=== PATIENT | female | born 1985 | race Caucasian/White ===

== ENCOUNTER 2024-10-28 11:02 | Emergency (ER) | payer OTHER, SELFPAY ==
[2024-10-28 11:12] VITALS: BP 140/84; PULSE 74; RESP 18; TEMP 36.2; O2SAT 98; BMI 28.8
--- NOTE | 2024-10-28 11:46 | PC.NURSE ---
Lower back pain. States she had a twist and fall several months ago. States leaning forward improves her pain. Pt is able to ambulate w/o issue Pt denies issues with urination or defecation. Denies fevers. Denies N/V.
[2024-10-28 11:56] LABS: Ictotest Urine Negative (Negative)
[2024-10-28 12:00] LABS: RBC Urine 0-1/HPF (0-5/HPF); Urine Volume 10mL (spun); WBC Urine 1-5/HPF (0-5/HPF)
--- NOTE | 2024-10-28 12:00 | ED.BACK ---
HPI - Back Pain/Injury <Fadia Ramirez PA-C - Last Filed: 10/28/24 13:27> General Chief Complaint: Back Pain/Injury Stated Complaint: back pain Time Seen by Provider: 10/28/24 11:22 Source: patient History of Present Illness HPI Narrative: Krissy Oro is a pleasant 39-year-old female with a past medical history of connective tissue disorder, prior arrhythmia resolved after ablation who presents to the emergency department for low back pain and left hip pain after a fall 2 months ago. Patient states she tripped over a stump 2 months ago and partially fell catching herself with the left arm resulting in left shoulder pain and low back pain. She has already been evaluated by Orthopedics for the left shoulder pain and had an MRI of the left shoulder revealing a labrum tear. States that since this injury she has continued to have some midline lumbar pain and occasionally some left hip pain. She thought that this was just a muscle strain it would go away on its own however it has persisted so she is interested in getting an MRI of her lumbar spine today. She is ambulatory and denies any radiation of pain into the abdomen or down the legs. No numbness tingling or weakness of the lower legs. No history of fevers, chills, IV drug use, cancer. No dysuria or abnormal vaginal discharge. No abdominal pain. She took 500 mg of Tylenol before for this pain but it did not resolve the pain she does not like taking pills otherwise. She is here today with her 2 daughters. Related Data Previous Rx's Medication Instructions Recorded lidocaine 5 % topical patch 1 patch topical DAILY #15 ea 10/28/24 (Lidoderm) methocarbamol 500 mg tablet 500 mg PO TID PRN muscle spasm #20 10/28/24 tabs naproxen 500 mg tablet 500 mg PO BID PRN pain #20 tabs 10/28/24 Allergies Allergy/AdvReac Type Severity Reaction Status Date / Time No Known Drug Allergies Allergy Verified 10/28/24 11:12 Review of Systems <Fadia Ramirez PA-C - Last Filed: 10/28/24 13:27> Review of Systems ROS Unobtainable: All systems reviewed & are unremarkable except as noted in HPI and below Patient History <Fadia Ramirez PA-C - Last Filed: 10/28/24 13:27> Social History Smoking Status: Never smoker Smoking Status: Never smoker Exam <Fadia Ramirez PA-C - Last Filed: 10/28/24 13:27> Narrative Exam Narrative: GENERAL: 39 year old patient appears stated age. Well-developed patient, in no acute distress. HEAD: Atraumatic. Normocephalic. NECK: Trachea midline. Cervical ROM intact. CARDIOVASCULAR: Regular rate and rhythm. RESPIRATORY: ?Nonlabored respirations. ?Speaking in clear, full sentences. ?Clear to auscultation. Breath sounds equal bilaterally. No wheezes, rales, or rhonchi. ? GASTROINTESTINAL: Abdomen soft, non-tender, nondistended. EXTREMITIES: No edema or joint tenderness. BACK: Subjective pain and some tenderness with deep palpation of the midline lumbar region, no palpable defects or step-offs. No rashes in this area. No CVA tenderness. Subjective pain left hip but no pain with range of motion of hip. Strong PT pulses bilaterally. NEURO: AOx3. ?Clear speech. ?Moves all 4 extremities appropriately. SKIN: No rash or erythema of visible areas Initial Vital Signs Initial Vital Signs: Vital Signs Temperature 97.2 F L 10/28/24 11:12 Pulse Rate 74 10/28/24 11:12 Respiratory Rate 18 10/28/24 11:12 Blood Pressure 140/84 10/28/24 11:12 Pulse Oximetry 98 10/28/24 11:12 Oxygen Delivery Method Room Air 10/28/24 11:12 <Rashida Kenney DO - Last Filed: 10/28/24 17:54> Initial Vital Signs Initial Vital Signs: Vital Signs Temperature 97.2 F L 10/28/24 11:12 Pulse Rate 74 10/28/24 11:12 Respiratory Rate 18 10/28/24 11:12 Blood Pressure 140/84 10/28/24 11:12 Pulse Oximetry 98 10/28/24 11:12 Oxygen Delivery Method Room Air 10/28/24 11:12 Course <Fadia Ramirez PA-C - Last Filed: 10/28/24 13:27> Orders Ordered: ED Orders 10/28/24 11:40 Ictotest Urine Stat Urine Microscopic Stat 10/28/24 12:12 XR hip w pel if done LT 2V Stat XR lumbar spine 2-3V Stat Discontinued Medications Ketorolac Tromethamine (Ketorolac 30 Mg/Ml Vial) 30 mg IM NOW ONE Stop: 10/28/24 12:13 Last Admin: 10/28/24 12:33 Dose: 30 mg Documented By: MAMTA Lidocaine (Lidocaine 5% Patch) 1 each TOP NOW ONE Stop: 10/28/24 12:13 Last Admin: 10/28/24 12:33 Dose: 1 each Documented By: MAMTA Ondansetron HCl (Ondansetron 4 Mg/2 Ml Inj) 4 mg IV NOW PRN PRN Reason: Nausea And Vomiting Ondansetron HCl (Ondansetron 4 Mg Odt) 4 mg SL NOW PRN PRN Reason: Nausea And Vomiting Vital Signs Vital signs: Vital Signs - 8 hr 10/28/24 11:12 10/28/24 13:50 Temperature 97.2 F L Pulse Rate 74 86 Respiratory Rate 18 16 Blood Pressure 140/84 128/81 Pulse Oximetry 98 97 Oxygen Delivery Method Room Air Room Air <Rashida Kenney, - Last Filed: 10/28/24 17:54> Orders Ordered: ED Orders 10/28/24 11:40 Ictotest Urine Stat Urine Microscopic Stat 10/28/24 12:12 XR hip w pel if done LT 2V Stat XR lumbar spine 2-3V Stat Discontinued Medications Ketorolac Tromethamine (Ketorolac 30 Mg/Ml Vial) 30 mg IM NOW ONE Stop: 10/28/24 12:13 Last Admin: 10/28/24 12:33 Dose: 30 mg Documented By: MAMTA Lidocaine (Lidocaine 5% Patch) 1 each TOP NOW ONE Stop: 10/28/24 12:13 Last Admin: 10/28/24 12:33 Dose: 1 each Documented By: MAMTA Ondansetron HCl (Ondansetron 4 Mg/2 Ml Inj) 4 mg IV NOW PRN PRN Reason: Nausea And Vomiting Ondansetron HCl (Ondansetron 4 Mg Odt) 4 mg SL NOW PRN PRN Reason: Nausea And Vomiting Vital Signs Vital signs: Vital Signs - 8 hr 10/28/24 11:12 10/28/24 13:50 Temperature 97.2 F L Pulse Rate 74 86 Respiratory Rate 18 16 Blood Pressure 140/84 128/81 Pulse Oximetry 98 97 Oxygen Delivery Method Room Air Room Air MDM - Back Pain/Injury <Fadia C James, PA-C - Last Filed: 10/28/24 13:27> Lab Data Labs: Lab Results 10/28/24 Range/Units 11:40 Ur Bilirubin Confirm Negative (Negative) Urine RBC 0-1/hpf (0-5/HPF) Urine WBC 1-5/hpf (0-5/HPF) Ur Squamous Epith Cells 0-1 /hpf (0-5/HPF) Urine Bacteria Occasional (0-1) (None) Ur Culture Indicated? Cult not indicated Vol Urine Centrifuged 10ml (spun) Point of Care Testing Test Results Negative Urine Dip Bedside Urine Glucose Negative Bedside Urine Bilirubin + 1 Bedside Urine Ketone + 15 Urine Specific [place] 1.025 Bedside Urine Occult Blood - Negative Bedside Urine pH 6.0 Bedside Urine Protein - Negative Bedside Urine Urobilinogen - Negative Bedside Urine Nitrite - Negative Bedside Urine Leukocytes - Negative Esterase Imaging Data Lumbar X-Ray: Radiologist's Impression: PROCEDURE: XR LUMBAR SPINE 2-3V INDICATIONS: midline low back pain and L hip pain after fall 2 moago TECHNIQUE: 3 views of the lumbar spine were acquired. COMPARISON: None. FINDINGS: Bones: 5 [id number] vertebrae are present. There is normal bony alignment. No vertebral body compression fractures. No suspicious bony lesions. Soft tissues: Overlying bowel gas pattern is normal. No suspicious soft tissue calcifications. IMPRESSION: No acute bony abnormality. Left Hip and Pelvis X-ray: Radiologist's Impression: PROCEDURE: XR HIP W PEL IF DONE LT 2V INDICATIONS: midline low back pain and L hip pain after fall 2 moago TECHNIQUE: AP pelvis with lateral view(s) of the left hip(s). COMPARISON: None. FINDINGS: Bones: No fractures or dislocations. Pelvic ring appears intact. No suspicious bony lesions. Soft tissues: The visualized bowel gas pattern is normal. No suspicious soft tissue calcifications. IMPRESSION: No acute bony abnormality. [facility] Narrative Medical decision making narrative: 39-year-old female with a past medical history of connective tissue disorder, prior arrhythmia resolved after ablation who presents to the emergency department for low back pain and left hip pain after a fall 2 months ago. Differential diagnosis includes but is not limited to lumbar strain, compression fracture, degenerative disc disease, spinal stenosis, muscle spasm, UTI, etc. On exam patient is in no acute distress, nontoxic appearing, vital signs appropriate. Her lower extremities are neurovascularly intact, no bowel or bladder incontinence, no fevers, no history of IV drug use, no direct trauma to the back. She is subjective midline lumbar spinal discomfort and some tenderness with the palpation, also some subjective left hip pain ever since a partial fall 2 months ago. We will obtain x-ray lumbar spine and hip to rule out bony abnormalities, treat with Toradol and Lidoderm, UA reveals negative test and no infection. Lumbar and hip x-ray negative for acute bony abnormalities. Suspect symptoms related to lumbar strain however stressed the importance of follow up with spine ortho for further imaging and evaluation. Recommended prescriptions of naproxen, Robaxin, Lidoderm in addition to acetaminophen, rest, gentle stretching, TENs unit. Patient verbalized understanding of all information is agreeable to the plan. ED return precautions discussed. PCP follow up advised. She is ambulatory and stable for discharge home. <Rashida Kenney, - Last Filed: 10/28/24 17:54> Lab Data Labs: Lab Results 10/28/24 Range/Units 11:40 Ur Bilirubin Confirm Negative (Negative) Urine RBC 0-1/hpf (0-5/HPF) Urine WBC 1-5/hpf (0-5/HPF) Ur Squamous Epith Cells 0-1 /hpf (0-5/HPF) Urine Bacteria Occasional (0-1) (None) Ur Culture Indicated? Cult not indicated Vol Urine Centrifuged 10ml (spun) Point of Care Testing Test Results Negative Urine Dip Bedside Urine Glucose Negative Bedside Urine Bilirubin + 1 Bedside Urine Ketone + 15 Urine Specific [place] 1.025 Bedside Urine Occult Blood - Negative Bedside Urine pH 6.0 Bedside Urine Protein - Negative Bedside Urine Urobilinogen - Negative Bedside Urine Nitrite - Negative Bedside Urine Leukocytes - Negative Esterase Discharge Plan Departure Patient Disposition: Home Clinical Impression: Lumbar strain Qualifiers: Encounter type: initial encounter Qualified Code(s): S39.012A - Strain of muscle, fascia and tendon of lower back, initial encounter Instructions: DI for Low Back Pain Activity Restrictions/Additional Instructions: Dear Ms. Oro, Thank you for coming to the emergency department. Today we performed x-rays of your lumbar spine and pelvis/left hip which showed no acute bony abnormalities. X-rays do not rule out important soft tissue injuries however so it is very important to continue following up with your primary care doctor and an orthopedic spine doctor for further evaluation. I have prescribed you naproxen which is anti-inflammatory pain medication, Robaxin which is a muscle relaxer, and Lidoderm which is topical numbing medication. Please be aware that methocarbamol/Robaxin as a muscle relaxer and this medication may make you drowsy so he should not drink alcohol, operate heavy machinery, or drive a car while taking this medication. You may also safely take acetaminophen/Tylenol with these medications. You should rest, perform gentle stretching, and use heat therapy or TENs unit as well. The closest orthopedic spine surgeon is Dr. Lonnie Callahan with [facility] in [place]. You may call to schedule an appointment at [phone]. Please follow up with your primary care doctor within the next 2-3 days for ER follow-up. (If you do not have a PCP you can call [phone]. ?to schedule an appointment with an [facility] Primary Care Provider) IF YOU DEVELOP ANY NEW OR WORSENING SYMPTOMS, RETURN TO THE ER! Please read the attached instructions, they highlight more specific treatments and interventions for you at home. Thank you for letting me participate in your care, Fadia Ramirez PA-C Prescriptions: New naproxen 500 mg tablet 500 mg PO BID PRN (Reason: pain) Qty: 20 0RF methocarbamol 500 mg tablet 500 mg PO TID PRN (Reason: muscle spasm) Qty: 20 0RF lidocaine [Lidoderm] 5 % adhesive patch,medicated 1 patch topical DAILY Qty: 15 0RF Rx Instructions: leave on most painful area for up to 12 hrs Stand Alone Forms: Patient Portal/API/Survey ED Sign-out <Rashida Kenney, - Last Filed: 10/28/24 17:54> Cosign ED Attending Lorraine Attestation: I was immediately available in the department for consultation.
[2024-10-28 12:01] LABS: Bacteria Urine Occasional (0-1); Culture Indicated Urine Cult Not Indicated; Squamous Epithelial Cell Urine 0-1 /HPF (0-5/HPF)
--- NOTE | 2024-10-28 12:12 | DI.RAD.S_ITS ---
PROCEDURE: XR HIP W PEL IF DONE LT 2V INDICATIONS: midline low back pain and L hip pain after fall 2 moago TECHNIQUE: AP pelvis with lateral view(s) of the left hip(s). COMPARISON: None. FINDINGS: Bones: No fractures or dislocations. Pelvic ring appears intact. No suspicious bony lesions. Soft tissues: The visualized bowel gas pattern is normal. No suspicious soft tissue calcifications. IMPRESSION: No acute bony abnormality. Dictated by: Magnolia Cartagena M.D. on 10/28/2024 at 11:42 Approved by: Magnolia Cartagena M.D. on 10/28/2024 at 11:43
--- NOTE | 2024-10-28 12:12 | DI.RAD.S_ITS ---
PROCEDURE: XR LUMBAR SPINE 2-3V INDICATIONS: midline low back pain and L hip pain after fall 2 moago TECHNIQUE: 3 views of the lumbar spine were acquired. COMPARISON: None. FINDINGS: Bones: 5 [id number] vertebrae are present. There is normal bony alignment. No vertebral body compression fractures. No suspicious bony lesions. Soft tissues: Overlying bowel gas pattern is normal. No suspicious soft tissue calcifications. IMPRESSION: No acute bony abnormality. Dictated by: Magnolia Cartagena M.D. on 10/28/2024 at 11:43 Approved by: Magnolia Cartagena M.D. on 10/28/2024 at 11:44
[2024-10-28] MEDS: LIDOCAINE 5% PATCH 1 EACH TOP (12:33)
[2024-10-28] MEDS: KETOROLAC 30 MG/ML VIAL IM (12:33)
[2024-10-28 13:50] VITALS: BP 128/81; PULSE 86; RESP 16; O2SAT 97
== END 2024-10-28 13:51 | disposition home or self-care (01) ==
PROVIDERS: Emergency Provider Physician Assistant
DX: S39.012A Strain of muscle, fascia and tendon of lower back, initial encounter (principal); W18.09XA Striking against other object with subsequent fall, initial encounter
CPT/HCPCS: 72100; 73502; 81003; 81015; 81025; 96372; 99283; 99284; J1885

== ENCOUNTER 2024-11-18 10:17 | Emergency (ER) | payer OTHER, SELFPAY ==
[2024-11-18 10:44] VITALS: BP 132/79; PULSE 113; RESP 14; TEMP 37.2; O2SAT 99; BMI 28.8
--- NOTE | 2024-11-18 10:48 | DI.RAD.S_ITS ---
PROCEDURE: XR CHEST 1V INDICATIONS: chest pain TECHNIQUE: One view of the chest was acquired. COMPARISON: None. FINDINGS: Surgical changes and devices: None. Lungs and pleura: An incomplete inspiratory result is noted, causing a crowded appearance to the lung markings. No focal infiltrates are seen. No pneumothorax or significant pleural effusions are seen. Mediastinum: Mediastinal contours appear normal. Heart size is normal. Bones and chest wall: No suspicious bony lesions. Overlying soft tissues appear unremarkable. IMPRESSION: Low lung volumes, without an acute abnormality seen by plain film. Dictated by: Angel Vizcaino M.D. on 11/18/2024 at 10:10 Approved by: Angel Vizcaino M.D. on 11/18/2024 at 10:10
[2024-11-18] MEDS: ASPIRIN 81 MG CHEW TAB 324 MG PO (10:51)
--- NOTE | 2024-11-18 10:52 | EKG_ITS ---
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
[2024-11-18] MEDS: ONDANSETRON 4 MG ODT SL (10:56)
--- NOTE | 2024-11-18 11:06 | ED.FEMALEGU ---
HPI - Female Genitourinary <Becki Duncan PA-C - Last Filed: 11/18/24 17:11> General Chief complaint: Urogenital-Female Stated complaint: Chest and Kidney pain Time Seen by Provider: 11/18/24 11:05 Mode of arrival: Ambulatory History of Present Illness HPI Narrative: 39-year-old woman with a history of previous cardiac ablation presents with concern for chest pain and kidney pain with some nausea in the setting of UTI. Patient states she was at urgent care yesterday after she had burning with urination day before yesterday and yesterday. She was diagnosed with a UTI but she has not yet picked up her antibiotics. She was having kidney pain/flank pain on both sides last night before bed and throughout the night, also had a fever up to 101 last night. She says she slept poorly but then woke up at around 3 or 4:00 a.m. from her sleep due to chest pain. She said that the pain was pretty intense and they considered calling 911, but it resolved within about 10 minutes. She describes it as a sharp pain towards her left shoulder in her upper chest accompanied with a heaviness sensation in her chest that made it feel like it was hard to breathe normally. She is not currently having any chest pain and it did not return. She notes that her sister of a heart attack at age 42 and . Patient states that her ablation was performed a few years ago because she had frequent bouts of SVT and need for adenosine. She has not had this happen since her ablation, though she does state that she frequently gets mildly tachycardic with a heart rate above 100. She denies any recent cough or URI symptoms. Until 2 days ago she was in her usual state of health. Related Data Previous Rx's Medication Instructions Recorded lidocaine 5 % topical patch 1 patch topical DAILY #15 ea 10/28/24 (Lidoderm) methocarbamol 500 mg tablet 500 mg PO TID PRN muscle spasm #20 10/28/24 tabs naproxen 500 mg tablet 500 mg PO BID PRN pain #20 tabs 10/28/24 amoxicillin 875 mg-potassium 1 tab PO Q12H pyelolonephritis 7 11/18/24 clavulanate 125 mg tablet days #14 tabs hydrocodone 5 mg-acetaminophen 325 1 tab PO Q8H PRN pain 2 days #6 11/18/24 mg tablet tabs Allergies Allergy/AdvReac Type Severity Reaction Status Date / Time No Known Drug Allergies Allergy Verified 11/18/24 10:44 Review of Systems <Becki Duncan PA-C - Last Filed: 11/18/24 17:11> Review of Systems Narrative: See HPI Exam <Becki Duncan PA-C - Last Filed: 11/18/24 17:11> Narrative Exam Narrative: GENERAL: [39] year old patient appears stated age. Well-developed patient, in mild distress. Tired appearing. Nontoxic HEAD: Atraumatic. Normocephalic. EYES: Pupils equal round and reactive. Extraocular motions intact. No scleral icterus. No injection or drainage. ENT: Nose without bleeding, purulent drainage. Airway patent. NECK: Trachea midline. CARDIOVASCULAR: Mildly tachycardic Regular rate and rhythm without murmurs, gallops, or rubs. RESPIRATORY: Clear to auscultation. Breath sounds equal bilaterally. No wheezes, rales, or rhonchi. GASTROINTESTINAL: Abdomen soft, non-tender, nondistended, suprapubic tenderness, bilateral flank pain with palpation and worse with percussion. EXTREMITIES: No edema or joint tenderness. BACK: Nontender without deformity or crepitance. No flank tenderness. NEURO: AOx3. SKIN: No rash or erythema of visible areas Initial Vital Signs Initial Vital Signs: Vital Signs Temperature 99.0 F 11/18/24 10:44 Pulse Rate 113 H 11/18/24 10:44 Respiratory Rate 14 11/18/24 10:44 Blood Pressure 132/79 11/18/24 10:44 Pulse Oximetry 99 11/18/24 10:44 Oxygen Delivery Method Room Air 11/18/24 10:44 <Rashida Kenney DO - Last Filed: 11/19/24 09:28> Initial Vital Signs Initial Vital Signs: Vital Signs Temperature 99.0 F 11/18/24 10:44 Pulse Rate 113 H 11/18/24 10:44 Respiratory Rate 14 11/18/24 10:44 Blood Pressure 132/79 11/18/24 10:44 Pulse Oximetry 99 11/18/24 10:44 Oxygen Delivery Method Room Air 11/18/24 10:44 Scores <Becki Duncan PA-C - Last Filed: 11/18/24 17:11> HEART Score Heart Score history: Slightly Suspicious Heart Score EKG: Normal Heart Score Age: < 45 years old Heart Score risk factors: 1-2 risk factors Heart Score troponin: < or = to normal limit Heart Score Total: 1 <Rashida Kenney DO - Last Filed: 11/19/24 09:28> HEART Score Heart Score Total: 1 Course <Becki Duncan PA-C - Last Filed: 11/18/24 17:11> Orders Ordered: Discontinued Medications Aspirin (Aspirin 81 Mg Chew Tab) 324 mg PO NOW ONE Stop: 11/18/24 10:49 Last Admin: 11/18/24 10:51 Dose: 324 mg Documented By: TOMASA Sodium Chloride (Normal Saline 0.9%) 1,000 mls @ 1,000 mls/hr IV BOLUS ONE Stop: 11/18/24 12:07 Last Infusion: 11/18/24 12:47 Dose: Infused Documented By: Admin: 11/18/24 11:52 Dose: 1,000 mls/hr Documented By: DINO Ceftriaxone Sodium 1,000 mg/ (Sodium Chloride) 100 mls @ 200 mls/hr IV NOW ONE Stop: 11/18/24 11:50 Last Infusion: 11/18/24 12:47 Dose: Infused Documented By: Admin: 11/18/24 12:04 Dose: 200 mls/hr Documented By: DINO Ketorolac Tromethamine (Ketorolac 30 Mg/Ml Vial) 15 mg IV NOW ONE Stop: 11/18/24 11:50 Last Admin: 11/18/24 12:04 Dose: 15 mg Documented By: DINO Ondansetron HCl (Ondansetron 4 Mg/2 Ml Inj) 4 mg IV NOW PRN PRN Reason: Nausea And Vomiting Ondansetron HCl (Ondansetron 4 Mg Odt) 4 mg SL NOW PRN PRN Reason: Nausea And Vomiting Last Admin: 11/18/24 10:56 Dose: 4 mg Documented By: TOMASA Vital Signs Vital signs: Vital Signs - 8 hr 11/18/24 10:44 11/18/24 13:11 Temperature 99.0 F 98.2 F Pulse Rate 113 H 89 Respiratory Rate 14 17 Blood Pressure 132/79 118/82 Pulse Oximetry 99 97 Oxygen Delivery Method Room Air Room Air <Rashida Kenney DO - Last Filed: 11/19/24 09:28> Orders Ordered: Discontinued Medications Aspirin (Aspirin 81 Mg Chew Tab) 324 mg PO NOW ONE Stop: 11/18/24 10:49 Last Admin: 11/18/24 10:51 Dose: 324 mg Documented By: TOMASA Sodium Chloride (Normal Saline 0.9%) 1,000 mls @ 1,000 mls/hr IV BOLUS ONE Stop: 11/18/24 12:07 Last Infusion: 11/18/24 12:47 Dose: Infused Documented By: Admin: 11/18/24 11:52 Dose: 1,000 mls/hr Documented By: DINO Ceftriaxone Sodium 1,000 mg/ (Sodium Chloride) 100 mls @ 200 mls/hr IV NOW ONE Stop: 11/18/24 11:50 Last Infusion: 11/18/24 12:47 Dose: Infused Documented By: Admin: 11/18/24 12:04 Dose: 200 mls/hr Documented By: DINO Ketorolac Tromethamine (Ketorolac 30 Mg/Ml Vial) 15 mg IV NOW ONE Stop: 11/18/24 11:50 Last Admin: 11/18/24 12:04 Dose: 15 mg Documented By: DINO Ondansetron HCl (Ondansetron 4 Mg/2 Ml Inj) 4 mg IV NOW PRN PRN Reason: Nausea And Vomiting Ondansetron HCl (Ondansetron 4 Mg Odt) 4 mg SL NOW PRN PRN Reason: Nausea And Vomiting Last Admin: 11/18/24 10:56 Dose: 4 mg Documented By: TOMASA Vital Signs Vital signs: Vital Signs - 8 hr 11/18/24 10:44 11/18/24 13:11 Temperature 99.0 F 98.2 F Pulse Rate 113 H 89 Respiratory Rate 14 17 Blood Pressure 132/79 118/82 Pulse Oximetry 99 97 Oxygen Delivery Method Room Air Room Air MDM - Female Genitourinary <Becki Duncan PA-C - Last Filed: 11/18/24 17:11> Differential Diagnosis Differential diagnosis: Likely urinary tract infection and other (pyelonephritis, atypical chest pain) Medical Records Attestation: I reviewed the patient's medical records. Lab Data Attestation: I reviewed the patient's lab results. 11/18/24 11:20 11/18/24 11:20 Labs: Lab Results 11/18/24 11/18/24 Range/Units 10:51 11:20 WBC 7.1 (4.5-11.0) X10^3/uL RBC 4.75 (4.0-5.2) X10^6/uL Hgb 15.7 (12.0-16.0) g/dL Hct 45.9 (36-46) % MCV 96.8 (80-100) fL MCH 33.2 (26-34) PG MCHC 34.3 (30-36) % RDW 13.8 (11.6-14.8) % Plt Count 182 (150-400) X10^3/uL Neut % (Auto) 72.6 (50-75) % Lymph % (Auto) 14.7 L (25-40) % Graham % (Auto) 12.1 (3-14) % Eos % (Auto) 0.2 L (2-4) % Baso % (Auto) 0.4 (0-2) % Neut # (Auto) 5100 (1117-8582) /uL Lymph # (Auto) 1000 L (5165-9247) /uL Graham # (Auto) 900 (0-900) /uL Eos # (Auto) 0 (0-450) /uL Baso # (Auto) 0 (0-100) /uL PT 11.0 (9.4-12.5) SECONDS INR 1.0 (0.9-1.3) APTT 32 (25.1-36.5) SECONDS Sodium 135 L (137-145) mmol/L Potassium 3.6 (3.4-5.1) mmol/L Chloride 101 (98-107) mmol/L Carbon Dioxide 20 L (22-32) mmol/L BUN 7 (7-17) mg/dL Creatinine 0.70 (0.52-1.04) mg/dL Estimated GFR > 60 (>60) mL/min BUN/Creatinine Ratio 10.0 (6-22) Glucose 104 H (70-100) mg/dL Calcium 9.2 (8.4-10.2) mg/dL Magnesium 1.7 (1.6-2.3) mg/dL Total Bilirubin 0.7 (0.2-1.3) mg/dL AST 24 (14-36) IU/L ALT 17 (<35) IU/L Alkaline Phosphatase 69 (38-126) U/L Total Creatine Kinase 40 (30-135) U/L Troponin I < 0.012 (0.01-0.034) ng/mL NT-Pro-B Natriuret Pep 52 (<125) pg/mL Total Protein 8.3 H (6.3-8.2) g/dL Albumin 4.6 (3.5-5.0) g/dL Globulin 3.7 (1.7-4.1) g/dL Albumin/Globulin Ratio 1.2 (1.0-2.8) Lipase 55 (23-300) U/L Urine RBC 1-5/hpf (0-5/HPF) Urine WBC 10-30/hpf H (0-5/HPF) Ur Squamous Epith Cells 0-1 /hpf (0-5/HPF) Urine Bacteria Many (>30) H (None) Urine Mucus 1+ H (Negative) Ur Culture Indicated? Specimen cultured Vol Urine Centrifuged 10ml (spun) Point of Care Testing Test Results Negative Urine Dip Bedside Urine Glucose Negative Bedside Urine Bilirubin - Negative Bedside Urine Ketone - Negative Urine Specific [place] 1.010 Bedside Urine Occult Blood +++ Bedside Urine pH 6.0 Bedside Urine Protein - Negative Bedside Urine Urobilinogen - Negative Bedside Urine Nitrite - Negative Bedside Urine Leukocytes +++ 500 Esterase Imaging Data Chest x-ray: My Impression: Agree with Radiology interpretation Radiologist's Impression: [address] [address] XRay Report Signed Patient: Krissy Oro MR#: [id number] : 1985 Acct:[id number] Age/Sex: 39 / F Date of Service: 11/18/24 Loc: ED Accession Number: [id number] Procedure: XR chest 1V Ordering Provider: Rashida Kenney D.O. PROCEDURE: XR CHEST 1V INDICATIONS: chest pain TECHNIQUE: One view of the chest was acquired. COMPARISON: None. FINDINGS: Surgical changes and devices: None. Lungs and pleura: An incomplete inspiratory result is noted, causing a crowded appearance to the lung markings. No focal infiltrates are seen. No pneumothorax or significant pleural effusions are seen. Mediastinum: Mediastinal contours appear normal. Heart size is normal. Bones and chest wall: No suspicious bony lesions. Overlying soft tissues appear unremarkable. IMPRESSION: Low lung volumes, without an acute abnormality seen by plain film. Dictated by: Angel Vizcaino M.D. on 11/18/2024 at 10:10 Approved by: Angel Vizcaino M.D. on 11/18/2024 at 10:10 ECG Data Attestation: I personally reviewed and interpreted this ECG as follows: Interpretation: Sinus tachycardia heart rate 114 QTC within normal limits. T-wave inversions in lead 2 3 AVF V4 [address] elevation noted. MDM Narrative Medical decision making narrative: This is a 39-year-old woman with a history of cardiac ablation, UTI diagnosed yesterday presenting with concern for flank pain since last night and 10 minute episode of intense left-sided chest pain early this morning. Patient had a low temp of 99? and tachycardic on intake. Her chest pain resolved and did not returned today. Cardiac labs were ordered and these returned unremarkable. Given greater than 7 hours from episode of chest pain until labs were drawn and no recurrent chest pain a repeat troponin is not obtained. Chest x-ray had slightly poor inspiration but read as normal. Patient's heart score is 1 for personal and family history. Given no persistent or recurrent chest pain, no hypoxia, have low suspicion for PE and D-dimer was not ordered. On exam patient was tired appearing and did have bilateral flank pain with palpation worse with percussion. Her urine was consistent with a florid UTI. Given nature of her pain also low suspicion for ureterolithiasis. Labs were obtained with no elevation in her white count, despite her mild tachycardia do not feel she meets criteria for sepsis; she has not tachypneic and has no leukocytosis. She did receive a 1 L fluid bolus in the ER as well as 1 g of ceftriaxone IV and is sent out on 7 day course of Augmentin for pyelonephritis. She received Zofran as well as Toradol for pain and nausea. Return precautions provided, follow-up plan discussed, all questions answered. <Rashida Kenney, - Last Filed: 11/19/24 09:28> Lab Data Labs: Lab Results 11/18/24 11/18/24 Range/Units 10:51 11:20 WBC 7.1 (4.5-11.0) X10^3/uL RBC 4.75 (4.0-5.2) X10^6/uL Hgb 15.7 (12.0-16.0) g/dL Hct 45.9 (36-46) % MCV 96.8 (80-100) fL MCH 33.2 (26-34) PG MCHC 34.3 (30-36) % RDW 13.8 (11.6-14.8) % Plt Count 182 (150-400) X10^3/uL Neut % (Auto) 72.6 (50-75) % Lymph % (Auto) 14.7 L (25-40) % Graham % (Auto) 12.1 (3-14) % Eos % (Auto) 0.2 L (2-4) % Baso % (Auto) 0.4 (0-2) % Neut # (Auto) 5100 (1899-5227) /uL Lymph # (Auto) 1000 L (6539-1464) /uL Graham # (Auto) 900 (0-900) /uL Eos # (Auto) 0 (0-450) /uL Baso # (Auto) 0 (0-100) /uL PT 11.0 (9.4-12.5) SECONDS INR 1.0 (0.9-1.3) APTT 32 (25.1-36.5) SECONDS Sodium 135 L (137-145) mmol/L Potassium 3.6 (3.4-5.1) mmol/L Chloride 101 (98-107) mmol/L Carbon Dioxide 20 L (22-32) mmol/L BUN 7 (7-17) mg/dL Creatinine 0.70 (0.52-1.04) mg/dL Estimated GFR > 60 (>60) mL/min BUN/Creatinine Ratio 10.0 (6-22) Glucose 104 H (70-100) mg/dL Calcium 9.2 (8.4-10.2) mg/dL Magnesium 1.7 (1.6-2.3) mg/dL Total Bilirubin 0.7 (0.2-1.3) mg/dL AST 24 (14-36) IU/L ALT 17 (<35) IU/L Alkaline Phosphatase 69 (38-126) U/L Total Creatine Kinase 40 (30-135) U/L Troponin I < 0.012 (0.01-0.034) ng/mL NT-Pro-B Natriuret Pep 52 (<125) pg/mL Total Protein 8.3 H (6.3-8.2) g/dL Albumin 4.6 (3.5-5.0) g/dL Globulin 3.7 (1.7-4.1) g/dL Albumin/Globulin Ratio 1.2 (1.0-2.8) Lipase 55 (23-300) U/L Urine RBC 1-5/hpf (0-5/HPF) Urine WBC 10-30/hpf H (0-5/HPF) Ur Squamous Epith Cells 0-1 /hpf (0-5/HPF) Urine Bacteria Many (>30) H (None) Urine Mucus 1+ H (Negative) Ur Culture Indicated? Specimen cultured Vol Urine Centrifuged 10ml (spun) Point of Care Testing Test Results Negative Urine Dip Bedside Urine Glucose Negative Bedside Urine Bilirubin - Negative Bedside Urine Ketone - Negative Urine Specific [place] 1.010 Bedside Urine Occult Blood +++ Bedside Urine pH 6.0 Bedside Urine Protein - Negative Bedside Urine Urobilinogen - Negative Bedside Urine Nitrite - Negative Bedside Urine Leukocytes +++ 500 Esterase Discharge Plan Departure Patient Disposition: Home Clinical Impression: Pyelonephritis, Atypical chest pain Instructions: DI for Urinary Tract Infection (UTI) Activity Restrictions/Additional Instructions: *You have been diagnosed with [pyelonephritis, atypical chest pain] *What to do: *Please continue to take your regular medications as directed. [ 2] New medication prescriptions sent to your pharmacy: [Hydrocodone, Augmentin] [ ] New medication written as a paper prescription [ ] No new medications given *Please follow up with your primary care provider in 2-3 days, call for an appointment. Let them know you were seen in the Emergency Department and that we ask that you be seen in follow up. We will electronically transmit a record of today's note if your PCP is in our system. You came in today with concern for bilateral flank pain since last night in the setting of a UTI and also had some chest pain earlier this morning that resolved. We checked your cardiac labs and everything there looked okay. Your EKG showed that your heart rate was slightly elevated but was in a normal rhythm. Your chest x-ray also looked okay. We also checked some basic labs to evaluate how bad your infection is and these were looking okay. Your urine is definitely consistent with a UTI We gave you IV antibiotics that are long acting to help treat your UTI that is affecting your kidneys and you will need to take the Augmentin for the full course even if you are feeling better. Because you are still having some flank pain I did go ahead and prescribe hydrocodone I recommend you treat with Tylenol and ibuprofen 1st but if you need the hydrocodone you will have that as a backup for the next couple of days. If you have new or worsening symptoms please make sure you seek re-evaluation. I hope you feel better soon. *If you do not have a primary care provider please contact the [facility] Resource line at [phone]. They will ask some questions about your medical history and help get you set up with a doctor in the community. *Return to Emergency Department if you should have any new, worsening or concerning symptoms, such as [fever greater than 101 F, shaking chills, worsening pain, persistent vomiting or other bothersome symptoms] Prescriptions: New amoxicillin-pot clavulanate 875-125 mg tablet 1 tab PO Q12H 7 Days Qty: 14 0RF hydrocodone-acetaminophen 5-325 mg tablet 1 tab PO Q8H PRN (Reason: pain) 2 Days Qty: 6 0RF No Action naproxen 500 mg tablet 500 mg PO BID PRN (Reason: pain) Qty: 20 0RF methocarbamol 500 mg tablet 500 mg PO TID PRN (Reason: muscle spasm) Qty: 20 0RF lidocaine [Lidoderm] 5 % adhesive patch,medicated 1 patch topical DAILY Qty: 15 0RF Rx Instructions: leave on most painful area for up to 12 hrs Stand Alone Forms: Patient Portal/API/Survey ED Sign-out <Rashida Kenney DO - Last Filed: 11/19/24 09:28> Cosign ED Attending Lorraine Attestation: I was immediately available in the department for consultation.
[2024-11-18 11:30] LABS: Add Manual Diff / Slide Review NO; Basophils Absolute Auto 0 /uL (0-100); Basophils Percent Auto 0.4 % (0-2); Eosinophils Absolute Auto 0 /uL (0-450); Eosinophils Percent Auto 0.2 % (2-4); Hematocrit 45.9 % (36-46); Hemoglobin 15.7 g/dL (12.0-16.0); Lymphocytes Absolute Auto 1000 /uL (1100-4500); Lymphocytes Percent Auto 14.7 % (25-40); Mean Corpuscular HGB Conc 34.3 % (30-36); Mean Corpuscular Hemoglobin 33.2 PG (26-34); Mean Corpuscular Volume 96.8 fL (80-100); Monocytes Absolute Auto 900 /uL (0-900); Monocytes Percent Auto 12.1 % (3-14); Neutrophils Absolute Auto 5100 /uL (1500-7000); Neutrophils Percent Auto 72.6 % (50-75); Platelet Count 182 X10^3/uL (150-400); Red Blood Cell Count 4.75 X10^6/uL (4.0-5.2); Red Cell Distribution Width 13.8 % (11.6-14.8); White Blood Cell Count 7.1 X10^3/uL (4.5-11.0)
[2024-11-18 11:39] LABS: Bacteria Urine Many (>30); Mucus Urine 1+ (Negative); RBC Urine 1-5/HPF (0-5/HPF); Squamous Epithelial Cell Urine 0-1 /HPF (0-5/HPF); Urine Volume 10mL (spun); WBC Urine 10-30/HPF (0-5/HPF)
[2024-11-18 11:40] LABS: Culture Indicated Urine Specimen Cultured
[2024-11-18 11:42] LABS: PTT Partial Thromboplastin Tim 32 SECONDS (25.1-36.5)
[2024-11-18 11:45] LABS: Alanine Aminotransferase 17 IU/L (<35); Albumin 4.6 g/dL (3.5-5.0); Albumin Globulin Ratio 1.2 (1.0-2.8); Alkaline Phosphatase 69 U/L (38-126); Aspartate Aminotransferase 24 IU/L (14-36); Bilirubin Total 0.7 mg/dL (0.2-1.3); Blood Urea Nitrogen 7 mg/dL (7-17); Calcium 9.2 mg/dL (8.4-10.2); Carbon Dioxide 20 mmol/L (22-32); Chloride 101 mmol/L (98-107); Creatine Kinase 40 U/L (30-135); Estimated Glomerular Filt Rate > 60 mL/min (>60); Globulin 3.7 g/dL (1.7-4.1); Glucose 104 mg/dL (70-100); HEMOLYSIS < 15 (0-50); Lipase 55 U/L (23-300); Magnesium 1.7 mg/dL (1.6-2.3); Potassium 3.6 mmol/L (3.4-5.1); Sodium 135 mmol/L (137-145); Total Protein 8.3 g/dL (6.3-8.2)
[2024-11-18] MEDS: SODIUM CHLORIDE 0.9% 1,000 ML 1000 ML IV (11:52)
[2024-11-18 11:56] LABS: NT-proBNP (BNP-Adult 18+) 52 pg/mL (<125); Troponin I < 0.012 ng/mL (0.01-0.034)
[2024-11-18] MEDS: cefTRIAXone 1,000 MG in SODIUM CHLORIDE 0.9% 100 ML 200 MG IV (12:04)
[2024-11-18] MEDS: KETOROLAC 30 MG/ML VIAL 15 MG IV (12:04)
[2024-11-18 13:11] VITALS: BP 118/82; PULSE 89; RESP 17; TEMP 36.8; O2SAT 97
== END 2024-11-18 13:12 | disposition home or self-care (01) ==
PROVIDERS: Emergency Medicine; Emergency Provider Student in an Organized Health Care Education/Training Program
DX: N12 Tubulo-interstitial nephritis, not specified as acute or chronic (principal); R07.89 Other chest pain; R11.0 Nausea
CPT/HCPCS: 71045; 80053; 81003; 81015; 81025; 82550; 83690; 83735; 83880; 84484; 85025; 85610; 85730; 87077; 87086; 87186; 93005; 93010; 96365; 96375; 99284; J0696; J1885